=== PATIENT | male | born 1975 ===

== ENCOUNTER → 2022-05-18 13:41 | Outpatient (CLI) | payer BC, SELFPAY ==
--- NOTE | ~2022-05-18 | CT_ITS ---
EXAMINATION: CT abdomen pelvis w con INDICATION: Left upper quadrant abdominal pain TECHNIQUE: Computed tomographic images of the abdomen and pelvis were obtained after the administrati on of 100 cc of Omnipaque 350 intravenous contrast. The dose-length product (DLP) was 1131.48 mGy-cm. Automated exposure control and iterative reconstruction technique were employed. COMPARISON: 08/16/2014 FINDINGS: Minimal dependent atelectasis is present in the lung bases. The heart size is normal. The l iver, spleen, pancreas, gallbladder, and adrenal glands are normal. The kidneys are unremarkable. No pathologically enlarged abdominal or pelvic lymph nodes are identified. The appendix is normal. There is no free intraperitoneal gas or evidence of bowel obstruction. There is a small diverticulum of th e left posterolateral bladder wall. There is mild lumbar spondylosis. There are fat-containing inguin al hernias. IMPRESSION: 1. No CT correlate for the patient's symptoms. Reviewed, dictated and finalized at location F.
[2022-05-18 14:12] LABS: Estimated Glomerular Filt Rate > 60
== END ==
PROVIDERS: PCP Internal Medicine; Visit Provider Internal Medicine
DX: R10.9 Unspecified abdominal pain (principal)
CPT/HCPCS: 74177; Q9967

== ENCOUNTER 2023-11-12 06:38 | Day surgery (SDC) | payer OTHER, SELFPAY ==
[2023-10-09 12:06] VITALS: BMI 36.6
--- NOTE | 2023-11-11 12:52 | PM.HPGS ---
History of Present Illness History of Present Illness Consent: Risks, benefits, and alternatives have been discussed and questions answered. Patient agrees to proceed with procedure. Chief complaint: Neoplasm screening Narrative: Barney Portillo is a 48 year old male referred for colon cancer screening. 7 years ago he had a colonoscopy with removal of a hyperplastic polyp. At that time he was being investigated for left-sided abdominal pain. Review of Systems Review of Systems: All systems reviewed & are unremarkable except as noted in HPI and below PMFSH Past Medical History Medical History Hyperlipidemia Hypertension Social History Social History Smoking status: Never smoker Alcohol intake: current Drinks per week: 12 Alcohol use details: social Substance use: never Substance use type: does not use Meds Home Medications and Allergies Home Medications Medication Instructions Recorded Confirmed Type losartan 50 mg-hydrochlorothiazide 1 tablet PO DAILY 10/10/21 11/12/23 History 12.5 mg tablet rosuvastatin 20 mg tablet 20 mg PO DAILY 10/10/21 11/12/23 History ergocalciferol (vitamin D2) 1,250 1,250 mcg PO DIRECTED 10/28/23 11/12/23 History mcg (50,000 unit) capsule Allergies Allergy/AdvReac Type Severity Reaction Status Date / Time No Known Drug Allergies Allergy Unknown unk Verified 11/12/23 07:24 Exam Resp: Auscultation: clear to auscultation bilaterally Cardio: Rate: regular rate Rhythm: regular rhythm GI: GI Palp: Yes Soft to palpation and No Tenderness to palpation present (GI) Assessment and Plan Assessment and plan (1) Colon cancer screening: Code(s): Z12.11 - Encounter for screening for malignant neoplasm of colon Status: Acute Assessment and Plan: Colonoscopy with possible biopsy or polypectomy or cautery or injection of substances.
[2023-11-12 07:25] VITALS: BMI 35.4
--- NOTE | 2023-11-12 07:39 | P.PNAN_ITS ---
Anes - Initial Pre Proc Eval Procedure: Operation Date: 11/12/23 08:30 Proposed Procedures p Colonoscopy - Stephon Garcia MD Date/Time: 11/12/23 07:39 Surgeon: Stephon Garcia MD Pre Op Diagnosis: Neoplasm screening Patient Data Age: 48 Gender: M Height: 1.83 m Weight: 118.45 kg Allergies Allergy/AdvReac Type Severity Reaction Status Date / Time No Known Drug Allergies Allergy Unknown unk Verified 11/12/23 07:24 Home Medications Medication Instructions Recorded Confirmed Type losartan 50 mg-hydrochlorothiazide 1 tablet PO DAILY 10/10/21 11/12/23 History 12.5 mg tablet rosuvastatin 20 mg tablet 20 mg PO DAILY 10/10/21 11/12/23 History ergocalciferol (vitamin D2) 1,250 1,250 mcg PO DIRECTED 10/28/23 11/12/23 History mcg (50,000 unit) capsule Patient hx anesthesia problems: none Family hx anesthesia problems: none Results Review: All pre-operative results and documents have been reviewed as part of the pre- operative evaluation. PMFSH Past Medical History Medical History Hyperlipidemia Hypertension Social History Social History Smoking status: Never smoker Alcohol intake: current Drinks per week: 12 Alcohol use details: social Substance use: never Substance use type: does not use Anes - Eval Final PreProcedure Day of Procedure 11/12/23 07:39 Patient weight: obese Heart: regular rate and rhythm Lungs: clear to auscultation Airway: Mallampati scale class II Neurological: alert and oriented Last oral intake: >/= 8 hours ASA classification: III Emergent: no Anesthetic plan: proceed Anesthesia type and monitoring: general GIVS and standard monitoring Results Review: All pre-operative results and documents have been reviewed as part of the pre- operative evaluation. Informed Consent: The patient's anesthetic plan and its attendant risks and benefits were discussed with the patient/family/POA. Questions were solicited and answers provided to the satisfaction of the patient/family/POA.
[2023-11-12 07:41] VITALS: BP 153/92; PULSE 93; RESP 20; TEMP 36.6; O2SAT 100
[2023-11-12] MEDS: LACTATED RINGERS 500 ML 150 ML IV CONT (07:41)
[2023-11-12 09:04] VITALS: BP 123/60; PULSE 84; RESP 18; O2SAT 98
[2023-11-12 09:14] VITALS: BP 122/82; PULSE 80; RESP 20; O2SAT 99
[2023-11-12 09:24] VITALS: BP 118/84; PULSE 73; RESP 20; O2SAT 100
--- NOTE | 2023-11-12 09:58 | SUR.PHASEII ---
0935 pt sitting up in chair waiting for his brother to pick him up. pt states he is feeling fine.
--- NOTE | 2023-11-12 12:37 | WPDANESPN ---
Anes - Prog Note Post-Op Date/Time: 11/12/23 12:37 Cardiovascular status: normal Respiratory status: normal Airway patency: baseline Mental status: baseline Post-Op hydration status: normal Vital Signs: Last Vital Signs Temp 36.6 C 11/12/23 07:41 Pulse 73 11/12/23 09:24 Resp 20 11/12/23 09:24 BP 118/84 11/12/23 09:24 Pulse Ox 100 11/12/23 09:24 O2 Del Method Room Air 11/12/23 09:24 Pain Score (VAS): 0 I/O: Intake & Output 11/11/23 11/12/23 11/12/23 23:59 07:59 15:59 Intake Total 500 Balance 500 Post-procedural complaints: none Patient Feedback: Patient satisfied with anesthetic care. Other Findings: Patient vital signs back to baseline. Patient denies nausea and vomiting. Patient's pain under control. Patient OK for discharge.
== END 2023-11-12 10:07 | disposition home or self-care (01) ==
PROVIDERS: PCP Internal Medicine; Visit Provider Internal Medicine Gastroenterology
PROC: 0DJD8ZZ Inspection of Lower Intestinal Tract, Via Natural or Artificial Opening Endoscopic (ICD-10-PCS; CPT 45378; principal; 2023-11-12 08:30)
DX: Z12.11 Encounter for screening for malignant neoplasm of colon (principal)
CPT/HCPCS: 45378

== ENCOUNTER 2024-05-12 15:46 | Outpatient (CLI) | payer OTHER, SELFPAY ==
--- NOTE | ~2024-05-12 | US_ITS ---
EXAMINATION: US thyroid DATE: 05/12/2024 16:06 INDICATION: Hyperthyroidism. TECHNIQUE: Multiple ultrasound images of the thyroid were obtained. COMPARISON: None. FINDINGS: The right thyroid lobe measures 4.5 x 1.4 x 1.5 cm. The left thyroid lobe measures 4.9 x 1.4 x 1.4 c m. There is normal echotexture and echogenicity throughout the thyroid gland. No discrete nodules id entified. Normal vascular flow is present. IMPRESSION: 1. Normal thyroid. Reviewed, dictated and finalized at location A. IMPRESSION: 1. Normal thyroid.
== END 2024-05-12 15:47 | disposition home or self-care (01) ==
LOC: MICIMG 15:48
PROVIDERS: PCP Internal Medicine; Visit Provider Internal Medicine
DX: E03.9 Hypothyroidism, unspecified (principal)
CPT/HCPCS: 76536